=== PATIENT | female | born 1985 ===

== ENCOUNTER → 2017-11-12 | Emergency (ER) | payer OTHER ==
[~2017-11-12] VITALS: Ht 167.6 cm; Wt 81.6 kg
[~2017-11-12] MED LIST: DOLOGEN CAPLET1 TAB PO; ZYRTEC10 M3
== END | disposition home or self-care (01) ==
LOC: ER 20:24
DX: B34.9 Viral infection, unspecified (principal); R50.9 Fever, unspecified